=== PATIENT | female | born 1995 | race Caucasian/White ===

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

== ENCOUNTER 2017-02-25 16:25 | Emergency (ER) | payer MEDICAID ==
[~2017-02-25] VITALS: Ht 162.6 cm; Wt 77.1 kg
--- OUTSIDE RECORDS SUMMARY | 2017-02-25 16:33 | External Medical Summary Rpt | CCD ---
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 Allergies, Adverse Reactions, Alerts Type Allergy to substance Adverse Reaction to Substance Substance Reaction Severity NO KNOWN ALLERGIES Unknown Unknown Clinical Alert Notifications Alert Diabetes: no eye exam in the last 365 days Diabetes: no lipid panel in the last 365 days Diabetes: no urine protein screening in the last 365 days Medications Na ND Rx Da Fi Fi Am Da Di Ph RX Ph St me C No te ll ll ou ys ag ar # ys at rm s nt no ma ic us Or Da si cy ia de te s n re d DE 00 11 0 No XA 05 -1 ME 43 8- Lo TH 17 20 ng 64 13 er ON 4 E Ac IN ti TE ve NS OL 1M G/ 1M L SO 00 08 0 No DI 40 -2 UM 97 4- Lo 98 20 ng CH 30 13 er LO 9 RI Ac DE ti ve 0. 9% SO WEST TI ON Sa 63 08 0 No li 80 -2 ne 70 4- Lo 10 20 ng Fl 07 13 er us 5 h Ac 10 ti ML ve Sy ri ng e In 00 03 0 No bee 08 -1 li 82 7- Lo n 22 20 ng Gl 06 13 er ar 0 gi Ac ne ti ve 10 0 Un it s/ Ml Vital Signs 03-08-2013 13:38 Name Value Interpretat Reference Comment ion Range Body 98.9 [degF] Temperature BP 64 mm[Hg] Diastolic BP Systolic 124 mm[Hg] Heart 111 /min Rate/Pulse O2% 98 % Respiratory 18 /min Rate 12-12-2012 02:50 Name Value Interpretat Reference Comment ion Range Body 98.5 [degF] Temperature BP 50 mm[Hg] Diastolic BP Systolic 101 mm[Hg] Heart 74 /min Rate/Pulse O2% 99 % Respiratory 20 /min Rate 12-12-2012 02:49 Name Value Interpretat Reference Comment ion Range Body 98.5 [degF] Temperature 12-12-2012 02:05 Name Value Interpretat Reference Comment ion Range BP 50 mm[Hg] Diastolic BP Systolic 101 mm[Hg] Heart 74 /min Rate/Pulse O2% 99 % Respiratory 20 /min Rate 07-06-2012 00:27 Name Value Interpretat Reference Comment ion Range BP 76 mm[Hg] Diastolic BP Systolic 134 mm[Hg] Heart 73 /min Rate/Pulse O2% 98 % Respiratory 20 /min Rate 07-05-2012 22:11 Name Value Interpretat Reference Comment ion Range BP 81 mm[Hg] Diastolic BP Systolic 153 mm[Hg] Heart 98 /min Rate/Pulse O2% 96 % Respiratory 20 /min Rate Results Labs Lab Lab Date Result Refere Interp Status Commen Order Detail nces retati t Range on CHLAMYDIA AND GONORRHEA TESTING (07-18-2015 13:00) Chlamyd NEGATIV complet ia 016 E ed trachom 13:00 atis rRNA [Presen ce] in Unspeci fied specime n by Probe & target amplifi cation method Neisser NEGATIV complet ia 016 E ed gonorrh 13:00 oeae rRNA [Presen ce] in Unspeci fied specime n by Probe & target amplifi cation method CHLAMYDIA AND GONORRHEA TESTING (07-18-2015 13:00) COLLECT M. F. 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 ETHNICI WHITE, complet TY 016 NON-HIS ed 13:00 PANIC KIT complet EXPIRAT 016 6 ed ION 13:00 DATE SYMPTOM NO complet S 016 ed 13:00 REASON REVISIT complet FOR 016 /ANNUAL ed REQUEST 13:00 FAMILY PLANNIN G VISIT SPECIME URINE complet N 016 ed SOURCE 13:00 PREGNAN NO complet T 016 ed 13:00 CHART 400-53- complet NUMBER 016 [id number] ed 13:00 Chlamyd Pending complet ia 016 ed trachom 13:00 atis rRNA [Presen ce] in Unspeci fied specime n by Probe & target amplifi cation method Neisser Pending complet ia 016 ed gonorrh 13:00 oeae rRNA [Presen ce] in Unspeci fied specime n by Probe & target amplifi cation method COMPREHENSIVE METABOLIC PANEL (12-12-2012 01:05) Glucose 191 74-106 complet 013 mg/dL ed Bld-mCn 01:05 c BUN 2 11 7-18 complet Bld-mCn 013 mg/dL ed c 01:05 Creat 2 0.7 0.6-1.0 complet SerPl-m 013 mg/dL ed Cnc 01:05 ESTIMAT 158 50-200 complet ED 013 ML/MIN ed CREATIN 01:05 INE CLEARAN CE Sodium 141 136-145 complet SerPl-s 013 mmoL/L ed Cnc 01:05 Potassi 2 3.3 3.5-5.1 complet um 013 mmoL/L ed SerPl-s 01:05 Cnc Chlorid 104 98-107 complet e 013 mmoL/L ed SerPl-s 01:05 Cnc CO2 25 21.0-32 complet SerPl-s 013 mmoL/L .0 ed Cnc 01:05 Calcium 12-12-2 8.3 8.5-10. complet 013 mg/dL 1 ed SerPl-m 01:05 Cnc Prot 12-12-2 7.3 6.4-8.2 complet SerPl-m 013 gm/dL ed Cnc 01:05 Albumin 12-12-2 3.9 3.4-5.0 complet 013 gm/dL ed SerPl-m 01:05 Cnc Globuli 12-12-2 3.4 1.3-3.2 complet n 013 gm/dL ed Ser-mCn 01:05 c Albumin 12-12-2 1.1 UNK 1.1-1.8 complet /Glob 013 ed SerPl-m 01:05 Rto Bilirub 12-12-2 0.2 0.2-1.0 complet 013 mg/dL ed SerPl-m 01:05 Cnc AST 24-2 24 U/L 15-37 complet SerPl-c 013 ed Cnc 01:05 ALT 24-2 44 U/L 30-65 complet SerPl-c 013 ed Cnc 01:05 ALP 24-2 119 U/L 50-136 complet SerPl-c 013 ed Cnc 01:05 Amylase SerPl-cCnc (12-12-2012 01:05) Amylase 0824-2 30 U/L 25-115 complet 013 ed SerPl-c 01:05 Cnc LIPASE (12-12-2012 01:05) LIPASE 24-2 76 U/L 73-393 complet 013 ed 01:05 CBC with AUTO DIFF (12-12-2012 01:05) WBC # 08-24-2 10.4 4.5-13. complet Bld 013 K/MM3 5 ed Auto 01:05 RBC # 0824-2 4.84 4.2-5.4 complet Bld 013 M/mm3 ed Auto 01:05 Hgb 24-2 13.9 12.2-16 complet Bld-mCn 013 g/dL .2 ed c 01:05 Hct Fr 24-2 40.6 % 37.0-47 complet Bld 013 .0 ed 01:05 MCV RBC 08-24-2 83.9 fl 82.2-97 complet 013 .8 ed 01:05 MCH RBC -24-2 28.8 pg 27-31.2 complet Qn 013 ed Auto 01:05 MEAN 24-2 34.3 31.8-35 complet CORPUSC 013 g/dl .4 ed ULAR 01:05 HGB CONC RDW RBC -24-2 13.2 % 11.5-17 complet Auto 013 .5 ed 01:05 Platele 08-24-2 327 142-424 complet t Bld 013 K/mm3 ed Ql 01:05 Manual MEAN 08-24-2 7.3 fl 7.4-10. complet PLATELE 013 4 ed T 01:05 VOLUME Granulo -24-2 59.4 % 37.0-80 complet cytes 013 .0 ed Fr Bld 01:05 Auto LYMPH % 08-24-2 33.2 % 10-50 complet 013 ed 01:05 Monocyt 08-24-2 4.6 % complet es Fr 013 ed Bld 01:05 Auto Eosinop 08-24-2 1.6 % 0.1-12. complet hil Fr 013 0 ed Bld 01:05 Auto Basophi 08-24-2 1.1 % 0.1-2.0 complet ls Fr 013 ed Bld 01:05 Auto Granulo 08-24-2 6.2 1.8-7.8 complet cytes # 013 K/mm3 ed Bld 01:05 Auto Lymphoc 08-24-2 3.5 0.7-4.5 complet ytes Fr 013 K/mm3 ed Bld 01:05 Auto Monocyt 08-24-2 0.5 0.1-1.0 complet es # 013 K/mm3 ed Bld 01:05 Auto Eosinop 08-24-2 0.2 0.0-0.4 complet hil # 013 K/mm3 ed Bld 01:05 Auto Basophi 08-24-2 0.1 0-0.2 complet ls # 013 K/MM3 ed Bld 01:05 Auto B-HCG Ur Ql (12-12-2012 01:05) B-HCG 08-24-2 NEGATIV NEG complet Ur Ql 013 E ed 01:05 URINALYSIS/COMPLETE (12-12-2012 01:05) URINE 08-24-2 YELLOW YELLOW complet COLOR 013 ed 01:05 URINE 08-24-2 CLEAR CLEAR complet APPEARA 013 ed NCE 01:05 URINE 08-24-2 NEGATIV NEG complet GLUCOSE 013 E ed - 01:05 DIPSTIC K URINE 08-24-2 NEGATIV NEG complet BILIRUB 013 E ed IN - 01:05 DIPSTIC K URINE 08-24-2 NEGATIV NEG complet KETONE 013 E mg/dL ed 01:05 URINE 08-24-2 1.020 1.005-1 complet SPECIFI 013 UNK .030 ed C 01:05 GRAVITY URINE 08-24-2 TRACE-I NEG complet BLOOD 013 NTACT ed 01:05 URINE 08-24-2 6.0 UNK 5.0-8.5 complet PH 013 ed 01:05 URINE 08-24-2 NEGATIV NEG complet PROTEIN 013 E mg/dL ed - 01:05 DIPSTIC K URINE 08-24-2 0.2 NEG complet UROBILI 013 E.U./dL ed NOGEN - 01:05 DIPSTIC K URINE 24-2 NEGATIV NEG complet NITRATE 013 E ed - 01:05 DIPSTIC K URINE 24-2 1+ NEG complet LEUK 013 ed ESTERAS 01:05 E URINE 24-2 OCC 0 complet RBC 013 rbc/hpf ed 01:05 URINE 24-2 3-5 O complet WBC 013 wbc/hpf ed 01:05 URINE 24-2 10-20 0-5 complet SQUAMOU 013 #/hpf ed S CELLS 01:05 COMPREHENSIVE METABOLIC PANEL (07-05-2012 21:45) Glucose 07-05- 452 74-106 complet 013 mg/dL ed Bld-mCn 21:45 c BUN 18 7-18 complet Bld-mCn 013 mg/dL ed c 21:45 Creat 1.1 0.6-1.0 complet SerPl-m 013 mg/dL ed Cnc 21:45 ESTIMAT 113 50-200 complet ED 013 ML/MIN ed CREATIN 21:45 INE CLEARAN CE Sodium 139 136-145 complet SerPl-s 013 mmoL/L ed Cnc 21:45 Potassi 3.9 3.5-5.1 complet um 013 mmoL/L ed SerPl-s 21:45 Cnc Chlorid 101 98-107 complet e 013 mmoL/L ed SerPl-s 21:45 Cnc CO2 27 21.0-32 complet SerPl-s 013 mmoL/L .0 ed Cnc 21:45 Calcium 07-05- 9.1 8.5-10. complet 013 mg/dL 1 ed SerPl-m 21:45 Cnc Prot 07-05-2 7.6 6.4-8.2 complet SerPl-m 013 gm/dL ed Cnc 21:45 Albumin 07-05- 3.6 3.4-5.0 complet 013 gm/dL ed SerPl-m 21:45 Cnc Globuli 07-05- 4.0 1.3-3.2 complet n 013 gm/dL ed Ser-mCn 21:45 c Albumin 0.9 UNK 1.1-1.8 complet /Glob 013 ed SerPl-m 21:45 Rto Bilirub 07-05-2 0.1 0.2-1.0 complet 013 mg/dL ed SerPl-m 21:45 Cnc AST 07-05-2 12 U/L 15-37 complet SerPl-c 013 ed Cnc 21:45 ALT 07-05-2 34 U/L 30-65 complet SerPl-c 013 ed Cnc 21:45 ALP 07-05-2 124 U/L 50-136 complet SerPl-c 013 ed Cnc 21:45 Acetamin SerPl-mCnc (07-05-2012 21:45) Acetami 07-05-2 0 ug/mL 10-30 complet n 013 ed SerPl-m 21:45 Cnc Ethanol Bld-mCnc (07-05-2012 21:45) Ethanol 07-05-2 0 mg/dL 0-99 complet 013 ed Bld-mCn 21:45 c Salicylates SerPl-mCnc (07-05-2012 21:45) Salicyl 07-05-2 2.2 2.8-20. complet ates 013 mg/dL 0 ed SerPl-m 21:45 Cnc CBC with AUTO DIFF (07-05-2012 21:45) WBC # 17-2 10.6 4.5-13. complet Bld 013 K/MM3 5 ed Auto 21:45 RBC # 17-2 4.60 4.2-5.4 complet Bld 013 M/mm3 ed Auto 21:45 Hgb 07-05-2 12.6 12.2-16 complet Bld-mCn 013 g/dL .2 ed c 21:45 Hct Fr 07-05-2 38.2 % 37.0-47 complet Bld 013 .0 ed 21:45 MCV RBC 07-05-2 83.0 fl 82.2-97 complet 013 .8 ed 21:45 MCH RBC 07-05-2 27.3 pg 27-31.2 complet Qn 013 ed Auto 21:45 MEAN 07-05-2 32.9 31.8-35 complet CORPUSC 013 g/dl .4 ed ULAR 21:45 HGB CONC RDW RBC 17-2 12.6 % 11.5-17 complet Auto 013 .5 ed 21:45 Platele 07-05-2 373 142-424 complet t Bld 013 K/mm3 ed Ql 21:45 Manual MEAN 03-17-2 7.4 fl 7.4-10. complet PLATELE 013 4 ed T 21:45 VOLUME Granulo 03-17-2 64.5 % 37.0-80 complet cytes 013 .0 ed Fr Bld 21:45 Auto LYMPH % 03-17-2 28.7 % 10-50 complet 013 ed 21:45 Monocyt 03-17-2 3.6 % complet es Fr 013 ed Bld 21:45 Auto Eosinop 03-17-2 2.1 % 0.1-12. complet hil Fr 013 0 ed Bld 21:45 Auto Basophi 03-17-2 1.1 % 0.1-2.0 complet ls Fr 013 ed Bld 21:45 Auto Granulo 03-17-2 6.9 1.8-7.8 complet cytes # 013 K/mm3 ed Bld 21:45 Auto Lymphoc 03-17-2 3.1 0.7-4.5 complet ytes Fr 013 K/mm3 ed Bld 21:45 Auto Monocyt 03-17-2 0.4 0.1-1.0 complet es # 013 K/mm3 ed Bld 21:45 Auto Eosinop 03-17-2 0.2 0.0-0.4 complet hil # 013 K/mm3 ed Bld 21:45 Auto Basophi 03-17-2 0.1 0-0.2 complet ls # 013 K/MM3 ed Bld 21:45 Auto B-HCG Ur Ql (07-05-2012 21:21) B-HCG 03-17-2 NEGATIV NEG complet Ur Ql 013 E ed 21:21 URINALYSIS/COMPLETE (07-05-2012 21:21) URINE 03-17-2 YELLOW YELLOW complet COLOR 013 ed 21:21 URINE 03-17-2 CLEAR CLEAR complet APPEARA 013 ed NCE 21:21 URINE 03-17-2 3+ NEG complet GLUCOSE 013 ed - 21:21 DIPSTIC K URINE 03-17-2 NEGATIV NEG complet BILIRUB 013 E ed IN - 21:21 DIPSTIC K URINE 03-17-2 TRACE NEG complet KETONE 013 mg/dL ed 21:21 URINE 03-17-2 1.010 1.005-1 complet SPECIFI 013 UNK .030 ed C 21:21 GRAVITY URINE -17-2 NEGATIV NEG complet BLOOD 013 E ed 21:21 URINE 07-05-2 5.5 UNK 5.0-8.5 complet PH 013 ed 21:21 URINE 07-05-2 NEGATIV NEG complet PROTEIN 013 E mg/dL ed - 21:21 DIPSTIC K URINE 07-05-2 0.2 NEG complet UROBILI 013 E.U./dL ed NOGEN - 21:21 DIPSTIC K URINE 07-05-2 NEGATIV NEG complet NITRATE 013 E ed - 21:21 DIPSTIC K URINE 07-05-2 NEGATIV NEG complet LEUK 013 E ed ESTERAS 21:21 E URINE 07-05-2 10-20 0-5 complet SQUAMOU 013 #/hpf ed S CELLS 21:21 CHLAMYDIA AND GONORRHEA TESTING (06-02-2012 09:30) Chlamyd NEGATIV complet ia 013 E ed trachom 09:30 atis rRNA [Presen ce] in Unspeci fied specime n by Probe & target amplifi cation method Neisser NEGATIV complet ia 013 E ed gonorrh 09:30 oeae rRNA [Presen ce] in Unspeci fied specime n by Probe & target amplifi cation method CHLAMYDIA AND GONORRHEA TESTING (06-02-2012 09:30) COLLECT NA complet OR 013 ed 09:30 ETHNICI WHITE, complet TY 013 NON-HIS ed 09:30 PANIC KIT 12-19-12 complet EXPIRAT 013 ed ION 09:30 DATE SYMPTOM NO complet S 013 ed 09:30 REASON VOLUNTE complet FOR 013 ER/MEDI ed REQUEST 09:30 DOMINGUEZ PROBLEM SPECIME URINE complet N 013 ed SOURCE 09:30 PREGNAN NO complet T 013 ed 09:30 CHART NA complet NUMBER 013 ed 09:30 Chlamyd Pending complet ia 013 ed trachom 09:30 atis rRNA [Presen ce] in Unspeci fied specime n by Probe & target amplifi cation method Neisser Pending complet ia 013 ed gonorrh 09:30 oeae rRNA [Presen ce] in Unspeci fied specime n by Probe & target amplifi cation method CHLAMYDIA AND GONORRHEA TESTING (03-24-2012 14:00) Chlamyd NEGATIV complet ia 012 E ed trachom 14:00 atis rRNA [Presen ce] in Unspeci fied specime n by Probe & target amplifi cation method Neisser NEGATIV complet ia 012 E ed gonorrh 14:00 oeae rRNA [Presen ce] in Unspeci fied specime n by Probe & target amplifi cation method CHLAMYDIA AND GONORRHEA TESTING (03-24-2012 14:00) COLLECT NA complet OR 012 ed 14:00 ETHNICI WHITE, complet TY 012 NON-HIS ed 14:00 PANIC KIT 08-18-12 complet EXPIRAT 012 ed ION 14:00 DATE SYMPTOM NO complet S 012 ed 14:00 REASON INITIAL complet FOR 012 FAMILY ed REQUEST 14:00 PLANNIN G VISIT SPECIME URINE complet N 012 ed SOURCE 14:00 PREGNAN NO complet T 012 ed 14:00 CHART NA complet NUMBER 012 ed 14:00 Chlamyd Pending complet ia 012 ed trachom 14:00 atis rRNA [Presen ce] in Unspeci fied specime n by Probe & target amplifi cation method Neisser Pending complet ia 012 ed gonorrh 14:00 oeae rRNA [Presen ce] in Unspeci fied specime n by Probe & target amplifi cation method Encounters Encounter Start End Date Code Location Performer Type Date Emergency MARIA ESTHER Amezcua MD (ER) 3 13:26 3 13:39 [facility] Emergency MARIA ESTHER Roy MD (ER) 3 00:55 3 02:52 [facility] Emergency MARIA ESTHER Roy MD (ER) 3 21:30 3 00:28 [facility]
--- OUTSIDE RECORDS SUMMARY | 2017-02-25 16:33 | External Medical Summary Rpt | CCD ---
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
--- OUTSIDE RECORDS SUMMARY | 2017-02-25 16:34 | External Medical Summary Rpt | CCD ---
Author Author , RONNIE TRUJILLO Address Unknown Phone [email or web address] Immunization Name Date Rout CVX Reac Dose Comm Prov Is Faci e tion ent ider Refu lity Give sed n HPV4 02-1 62 999 Hist H205 No H205 0-20 oric (Gar 10 al dasi Info l) rmat ion - Sour ce Unsp ecif ied HPV4 12-0 62 999 Hist H205 No H205 8-20 oric (Gar 09 al dasi Info l) rmat ion - Sour ce Unsp ecif ied Tdap 07-2 115 999 Hist H205 No H205 , 2-20 oric Adso 09 al rbed Info rmat ion - Sour ce Unsp ecif ied HPV4 07-2 62 999 Hist H205 No H205 2-20 oric (Gar 09 al dasi Info l) rmat ion - Sour ce Unsp ecif ied Vari 04-0 21 999 Hist H205 No H205 cell 9-20 oric a 02 al Info rmat ion - Sour ce Unsp ecif ied MMR 03-0 3 999 Hist H205 No H205 1-20 oric 02 al Info rmat ion - Sour ce Unsp ecif ied Adarsh 03-0 10 999 Hist H205 No H205 o-IP 1-20 oric V 02 al Info rmat ion - Sour ce Unsp ecif ied Adarsh 03-2 2 999 Hist H205 No H205 o-OP 8-20 oric V 00 al Info rmat ion - Sour ce Unsp ecif ied Hib, 03-2 17 999 Hist H205 No H205 UF 8-20 oric 00 al Info rmat ion - Sour ce Unsp ecif ied DTaP 11-1 107 999 Hist H149 No H149 , UF 5-19 oric 99 al Info rmat ion - Sour ce Unsp ecif ied MMR 11-1 3 999 Hist H149 No H149 5-19 oric 99 al Info rmat ion - Sour ce Unsp ecif ied
--- OUTSIDE RECORDS SUMMARY | 2017-02-25 16:34 | External Medical Summary Rpt | CCD ---
Author Author , RONNIE TRUJILLO Address Unknown Phone [email or web address] Immunization Name Date Rout CVX Reac Dose [...]
--- OUTSIDE RECORDS SUMMARY | 2017-02-25 16:34 | External Medical Summary Rpt | CCD ---
Author Author [employer] Organization [employer] Address Unknown Phone Unavailable Purpose Continuity of Care Document - through 2016
--- OUTSIDE RECORDS SUMMARY | 2017-02-25 16:35 | External Medical Summary Rpt ---
Author Author RONNIE Garcia, [employer] Organization [employer] Address Unknown Phone Unavailable Results CHLAMYDIA AND GONORRHEA TESTING Observa Value Referen Units Interpr Notes Date tion ce etation Range COLLECT M. F. 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 tion in tion in tion in tion in 1:00 PM source source source source data data data data ETHNICI WHITE, No No No No Jul 17 TY NON-HIS informa informa informa informa 2016 PANIC tion in tion in tion in tion in 1:00 PM source source source source data data data data KIT No No No No Jul 17 EXPIRAT 6 informa informa informa informa 2016 ION tion in tion in tion in tion in 1:00 PM DATE source source source source data data data data SYMPTOM NO No No No No Jul 17 S informa informa informa informa 2016 tion in tion in tion in tion in 1:00 PM source source source source data data data data REASON REVISIT No No No No Jul 17 FOR /ANNUAL informa informa informa informa 2016 REQUEST FAMILY tion in tion in tion in tion in 1:00 PM source source source source PLANNIN data data data data G VISIT SPECIME URINE No No No No Jul 17 N informa informa informa informa 2016 SOURCE tion in tion in tion in tion in 1:00 PM source source source source data data data data PREGNAN NO No No No No Jul 17 T informa informa informa informa 2016 tion in tion in tion in tion in 1:00 PM source source source source data data data data CHART 400-53- No No No No Jul 17 NUMBER [id number] informa informa informa informa 2016 tion in tion in tion in tion in 1:00 PM source source source source data data data data Chlamyd NEGATIV No No No NEGATIV Jul 17 ia E informa informa informa E 2016 trachom tion in tion in tion in RESULT= 1:00 PM atis source source source WITHIN rRNA data data data NORMAL [Presen ce] in LIMITSP Unspeci OSITIVE fied specime RESULT= n by Probe & ABNORMA target LEQUIVO DOMINGUEZ amplifi RESULT= cation method INDETER MINATEU NSATISF ACTORY RESULT= INVALID Neisser NEGATIV No No No NEGATIV Jul 17 ia E informa informa informa E 2016 gonorrh tion in tion in tion in RESULT= 1:00 PM oeae source source source WITHIN rRNA data data data NORMAL [Presen ce] in LIMITSP Unspeci OSITIVE fied specime RESULT= n by Probe & ABNORMA target LEQUIVO DOMINGUEZ amplifi RESULT= cation method INDETER MINATEU NSATISF ACTORY RESULT= INVALID THE APTIMA COMBO 2 ASSAY IS NOT INTENDE D FOR THE EVALUAT ION OF SUSPECT EDSEXUA L ABUSE OR FOR OTHER MEDICO- LEGAL INDICAT IONS. FOR THOSE PATIENT S FORWHOM A FALSE POSITIV E RESULT MAY HAVE ADVERSE PSYCHO- SOCIAL IMPACT, [facility].\.br \This report contain s patient informa tion that must be protect ed in accorda nce with the Health Insuran ce Portabi lity and Account ability Act. CHLAMYDIA AND GONORRHEA TESTING Observa Value Referen Units Interpr Notes Date tion ce etation Range COLLECT M. F. 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 tion in tion in tion in tion in 1:00 PM source source source source data data data data ETHNICI WHITE, No No No No Jul 17 TY NON-HIS informa informa informa informa 2016 PANIC tion in tion in tion in tion in 1:00 PM source source source source data data data data KIT No No No No Jul 17 EXPIRAT 6 informa informa informa informa 2016 ION tion in tion in tion in tion in 1:00 PM DATE source source source source data data data data SYMPTOM NO No No No No Jul 17 S informa informa informa informa 2016 tion in tion in tion in tion in 1:00 PM source source source source data data data data REASON REVISIT No No No No Jul 17 FOR /ANNUAL informa informa informa informa 2016 REQUEST FAMILY tion in tion in tion in tion in 1:00 PM source source source source PLANNIN data data data data G VISIT SPECIME URINE No No No No Jul 17 N informa informa informa informa 2016 SOURCE tion in tion in tion in tion in 1:00 PM source source source source data data data data PREGNAN NO No No No No Jul 17 T informa informa informa informa 2016 tion in tion in tion in tion in 1:00 PM source source source source data data data data CHART 400-53- No No No No Jul 17 NUMBER [id number] informa informa informa informa 2016 tion in tion in tion in tion in 1:00 PM source source source source data data data data Chlamyd Pending No No No No Jul 17 ia informa informa informa informa 2016 trachom tion in tion in tion in tion in 1:00 PM atis source source source source rRNA data data data data [Presen ce] in Unspeci fied specime n by Probe & target amplifi cation method Neisser Pending No No No \.br\Th Jul 17 ia informa informa informa is 2016 gonorrh tion in tion in tion in report 1:00 PM oeae source source source contain rRNA data data data s [Presen patient ce] in Unspeci informa fied tion specime that n by must be Probe & target protect ed in amplifi accorda cation nce method with the Health Insuran ce Portabi lity and Account ability Act. CHLAMYDIA AND GONORRHEA TESTING Observa Value Referen Units Interpr Notes Date tion ce etation Range COLLECT NA No No No No Jun 02 OR informa informa informa informa 2013 tion in tion in tion in tion in 9:30 AM source source source source data data data data ETHNICI WHITE, No No No No Jun 02 TY NON-HIS informa informa informa informa 2013 PANIC tion in tion in tion in tion in 9:30 AM source source source source data data data data KIT 8-31-13 No No No No Jun 02 EXPIRAT informa informa informa informa 2013 ION tion in tion in tion in tion in 9:30 AM DATE source source source source data data data data SYMPTOM NO No No No No Jun 02 S informa informa informa informa 2013 tion in tion in tion in tion in 9:30 AM source source source source data data data data REASON VOLUNTE No No No No Jun 02 FOR ER/MEDI informa informa informa informa 2013 REQUEST DOMINGUEZ tion in tion in tion in tion in 9:30 AM PROBLEM source source source source data data data data SPECIME URINE No No No No Jun 02 N informa informa informa informa 2013 SOURCE tion in tion in tion in tion in 9:30 AM source source source source data data data data PREGNAN NO No No No No Jun 02 T informa informa informa informa 2013 tion in tion in tion in tion in 9:30 AM source source source source data data data data CHART NA No No No No Jun 02 NUMBER informa informa informa informa 2013 tion in tion in tion in tion in 9:30 AM source source source source data data data data Chlamyd NEGATIV No No No NEGATIV Jun 02 ia E informa informa informa E 2013 trachom tion in tion in tion in RESULT= 9:30 AM atis source source source WITHIN rRNA data data data NORMAL [Presen ce] in LIMITSP Unspeci OSITIVE fied specime RESULT= n by Probe & ABNORMA target LEQUIVO DOMINGUEZ amplifi RESULT= cation method INDETER MINATEU NSATISF ACTORY RESULT= INVALID Neisser NEGATIV No No No NEGATIV Jun 02 ia E informa informa informa E 2013 gonorrh tion in tion in tion in RESULT= 9:30 AM oeae source source source WITHIN rRNA data data data NORMAL [Presen ce] in LIMITSP Unspeci OSITIVE fied specime RESULT= n by Probe & ABNORMA target LEQUIVO DOMINGUEZ amplifi RESULT= cation method INDETER MINATEU NSATISF ACTORY RESULT= INVALID THE APTIMA COMBO 2 ASSAY IS NOT INTENDE D FOR THE EVALUAT ION OF SUSPECT EDSEXUA L ABUSE OR FOR OTHER MEDICO- LEGAL INDICAT IONS. FOR THOSE PATIENT S FORWHOM A FALSE POSITIV E RESULT MAY HAVE ADVERSE PSYCHO- SOCIAL IMPACT, THE [facility] MMENDS RETESTI NG.\.br \This report contain s patient informa tion that must be protect ed in accorda nce with the Health Insuran ce Portabi lity and Account ability Act. CHLAMYDIA AND GONORRHEA TESTING Observa Value Referen Units Interpr Notes Date tion ce etation Range COLLECT NA No No No No Jun 02 OR informa informa informa informa 2013 tion in tion in tion in tion in 9:30 AM source source source source data data data data ETHNICI WHITE, No No No No Jun 02 TY NON-HIS informa informa informa informa 2013 PANIC tion in tion in tion in tion in 9:30 AM source source source source data data data data KIT 8-31-13 No No No No Jun 02 EXPIRAT informa informa informa informa 2013 ION tion in tion in tion in tion in 9:30 AM DATE source source source source data data data data SYMPTOM NO No No No No Jun 02 S informa informa informa informa 2013 tion in tion in tion in tion in 9:30 AM source source source source data data data data REASON VOLUNTE No No No No Jun 02 FOR ER/MEDI informa informa informa informa 2013 REQUEST DOMINGUEZ tion in tion in tion in tion in 9:30 AM PROBLEM source source source source data data data data SPECIME URINE No No No No Jun 02 N informa informa informa informa 2013 SOURCE tion in tion in tion in tion in 9:30 AM source source source source data data data data PREGNAN NO No No No No Jun 02 T informa informa informa informa 2013 tion in tion in tion in tion in 9:30 AM source source source source data data data data CHART NA No No No No Jun 02 NUMBER informa informa informa informa 2013 tion in tion in tion in tion in 9:30 AM source source source source data data data data Chlamyd Pending No No No No Jun 02 ia informa informa informa informa 2013 trachom tion in tion in tion in tion in 9:30 AM atis source source source source rRNA data data data data [Presen ce] in Unspeci fied specime n by Probe & target amplifi cation method Neisser Pending No No No \.br\Jun 02 ia informa informa informa is 2013 gonorrh tion in tion in tion in report 9:30 AM oeae source source source contain rRNA data data data s [Presen patient ce] in Unspeci informa fied tion specime that n by must be Probe & target protect ed in amplifi accorda cation nce method with the Health Insuran ce Portabi lity and Account ability Act. CHLAMYDIA AND GONORRHEA TESTING Observa Value Referen Units Interpr Notes Date tion ce etation Range COLLECT NA No No No No Mar 4 OR informa informa informa informa 2012 tion in tion in tion in tion in 2:00 PM source source source source data data data data ETHNICI WHITE, No No No No Dec TY NON-HIS informa informa informa informa 2012 PANIC tion in tion in tion in tion in 2:00 PM source source source source data data data data KIT 4-30-13 No No No No Dec 4 EXPIRAT informa informa informa informa 2012 ION tion in tion in tion in tion in 2:00 PM DATE source source source source data data data data SYMPTOM NO No No No No Dec 4 S informa informa informa informa 2012 tion in tion in tion in tion in 2:00 PM source source source source data data data data REASON INITIAL No No No No Mar 24 FOR FAMILY informa informa informa informa 2012 REQUEST tion in tion in tion in tion in 2:00 PM PLANNIN source source source source G VISIT data data data data SPECIME URINE No No No No Dec 4 N informa informa informa informa 2012 SOURCE tion in tion in tion in tion in 2:00 PM source source source source data data data data PREGNAN NO No No No No Dec T informa informa informa informa 2012 tion in tion in tion in tion in 2:00 PM source source source source data data data data CHART NA No No No No Dec 4 NUMBER informa informa informa informa 2012 tion in tion in tion in tion in 2:00 PM source source source source data data data data Chlamyd NEGATIV No No No NEGATIV Mar 4 ia E informa informa informa E 2012 trachom tion in tion in tion in RESULT= 2:00 PM atis source source source WITHIN rRNA data data data NORMAL [Presen ce] in LIMITSP Unspeci OSITIVE fied specime RESULT= n by Probe & ABNORMA target LEQUIVO DOMINGUEZ amplifi RESULT= cation method INDETER MINATEU NSATISF ACTORY RESULT= INVALID Neisser NEGATIV No No No NEGATIV Dec 4 ia E informa informa informa E 2012 gonorrh tion in tion in tion in RESULT= 2:00 PM oeae source source source WITHIN rRNA data data data NORMAL [Presen ce] in LIMITSP Unspeci OSITIVE fied specime RESULT= n by Probe & ABNORMA target LEQUIVO DOMINGUEZ amplifi RESULT= cation method INDETER MINATEU NSATISF ACTORY RESULT= INVALID THE APTIMA COMBO 2 ASSAY IS NOT INTENDE D FOR THE EVALUAT ION OF SUSPECT EDSEXUA L ABUSE OR FOR OTHER MEDICO- LEGAL INDICAT IONS. FOR THOSE PATIENT S FORWHOM A FALSE POSITIV E RESULT MAY HAVE ADVERSE PSYCHO- SOCIAL IMPACT, [facility] NG.\.br \This report contain s patient informa tion that must be protect ed in accorda nce with the Health Insuran ce Portabi lity and Account ability Act. CHLAMYDIA AND GONORRHEA TESTING Observa Value Referen Units Interpr Notes Date tion ce etation Range COLLECT NA No No No No Mar 24 OR informa informa informa informa 2012 tion in tion in tion in tion in 2:00 PM source source source source data data data data ETHNICI WHITE, No No No No Mar 24 TY NON-HIS informa informa informa informa 2012 PANIC tion in tion in tion in tion in 2:00 PM source source source source data data data data KIT 4-30-13 No No No No Mar 24 EXPIRAT informa informa informa informa 2012 ION tion in tion in tion in tion in 2:00 PM DATE source source source source data data data data SYMPTOM NO No No No No Mar 24 S informa informa informa informa 2012 tion in tion in tion in tion in 2:00 PM source source source source data data data data REASON INITIAL No No No No Mar 4 FOR FAMILY informa informa informa informa 2012 REQUEST tion in tion in tion in tion in 2:00 PM PLANNIN source source source source G VISIT data data data data SPECIME URINE No No No No Mar 4 N informa informa informa informa 2012 SOURCE tion in tion in tion in tion in 2:00 PM source source source source data data data data PREGNAN NO No No No No Mar 24 T informa informa informa informa 2012 tion in tion in tion in tion in 2:00 PM source source source source data data data data CHART NA No No No No Mar 24 NUMBER informa informa informa informa 2012 tion in tion in tion in tion in 2:00 PM source source source source data data data data Chlamyd Pending No No No No Mar 24 ia informa informa informa informa 2012 trachom tion in tion in tion in tion in 2:00 PM atis source source source source rRNA data data data data [Presen ce] in Unspeci fied specime n by Probe & target amplifi cation method Neisser Pending No No No \.br\Mar 24 ia informa informa informa is 2012 gonorrh tion in tion in tion in report 2:00 PM oeae source source source contain rRNA data data data s [Presen patient ce] in Unspeci informa fied tion specime that n by must be Probe & target protect ed in amplifi accorda cation nce method with the Health Insuran ce Portabi lity and Account ability Act.
--- OUTSIDE RECORDS SUMMARY | 2017-02-25 16:35 | External Medical Summary Rpt ---
Author Author RONNIE Garcia, [employer] Organization [employer] Address Unknown Phone Unavailable Results CHLAMYDIA AND GONORRHEA TESTING Observa Value Referen Units Interpr Notes Date tion ce etation Range COLLECT M. F. 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 CHLAMYDIA AND GONORRHEA TESTING Observa Value Referen Units Interpr Notes Date tion ce etation Range COLLECT M. F. 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
[2017-02-25 16:51] LABS: UTC STREP SCREEN NOT DETECTED (NOTDETECTED)
--- NOTE | 2017-02-25 16:51 | Urgent Treatment Center Report ---
History of Present Issue Date/Time Seen by Provider 02/25/17 1650 Visit Reason Pt arrived:Walked Presenting Problem:BODY ACHES, SORE THROAT AND FVER FOR 2 DAYS Location if Accident: Onset of symptoms date/time:/ or onset unknown for:MEDICAL HX UNKNOWN Have you (or family members/close friends) recently traveled outside the [place]? N If Yes, where/when: Have you had exposure to infectious disease within the past month? TB? Other? Specify: c/o of sore throat, body aches, cough. Started w/ sore throat late Friday. Woke up yesterday morning feeling worse. Throughout the day, aches and cough started as well as rhinorrhea and nasal congestion. Tried some sleep aid last night to help her sleep but it didn't. Denies fever. No known sick contacts. + tobacco use. Source patient Exam Limitations no limitations ALLERGIES Coded Allergies: No Known Allergies (02/08/16) Home Medications Reported Medications Insulin Lispro, Recombinant (Humalog 100 UNITS/ML 10ML) 0 UNITS SC ACHS Insulin Glargine (Lantus Insulin Vial) 47 UNITS SC QHS History Medical History General CAD? No Angina: No LA: No Hypertension? No Hyperlipidemia? Yes CHF? No DVT? No PE? No COPD? No Asthma? No Anemia? No GERD? No Gastric ulcers? No GI Bleed? No Hernia? No Thyroid Problems? No Hypothyroidism? No CVA? No Seizures? No Diabetes? Yes Insulin Dependent: Yes Insulin Pump: No Home FSBS? No Renal Insuffiency? No UTI? Yes Stones? No BPH? No GB Disease: No Nephritic Syndrome? No Asplenia? No Hepatitis? No Sickle Cell Disease? No Arthritis? No Migraines? No Cataracts? No Glaucoma? No MRSA? No HIV? No TB? No Anxiety? Yes Depression? Yes Cancer? No Immunization HX DT/Tetanus 1-4 YRS Flu REFUSES Pneumonia REFUSES Surgical Hx Previous Surgery?Y TONSILS WISDOM TEETH Family History Family HX Diabetes Yes CAD Yes Hypertension Yes Hyperlipidemia Yes Cancer Yes TB No Social History Smoking Hx Smoker: Current Every Day Smoker Tobacco: Yes Type Cigarettes Packs/day < 1 Pack Alcohol Alcohol: Yes Review of Systems All Other Systems Reviewed and Negative Constitutional see HPI, denies chills Eyes denies drainage ENT see HPI, other (sneezing). denies: ear pain, ear discharge, throat swelling. Respiratory see HPI, shortness of breath (reported but describes congstn), denies wheezing Cardiovascular denies chest pain, denies palpitations Gastrointestinal denies no symptoms reported Musculoskeletal denies joint pain Skin denies rash Psychiatric/Neurological headache (intermittently, pressure) Physical Exam Vital Signs Vital Signs Date Time Temp Pulse Resp B/P Pulse O2 O2 Flow FiO2 Ox Delivery Rate 02/25 1635 98.1 94 18 123/69 97 General Appearance normal appearance, no apparent distress Eye Exam - bilateral eye normal exam Ear, Nose, Throat albert EAC and TMs unremarkable, moderate nasal congestion w/ clear rhinorrhea, clear PND w/ cobblestoning Neck non-tender, supple Respiratory Status Yes: trachea midline, chest symmetrical. No: respiratory distress, pain on inspiration, pain on expiration, productive cough, non productive cough. Lung Sounds anterior: lungs clear. posterior: lungs clear. bilateral: lungs clear. Cardiovascular regular rate/rhythm, no peripheral edema, no murmur Neurologic alert, oriented x 3 Skin normal color, warm/dry Lymphatic no adenopathy Medical Decision Making LABS/Meds/Orders Pt receiving controlled substance in ED? No Results/Orders Laboratory Tests 02/25/17 1637: Influenza Type A Ag NOT DETECTED, Influenza Type B Ag NOT DETECTED, Group A Strep Screen NOT DETECTED Orders Procedure Date/time Status [facility] [[email or web address] STREP SCREEN 02/25 163 Complete [place] FLU A,B 02/25 163 Complete Departure Departure Time of Disposition 1657 Disposition DC Home or Self Care(routine) Clinical Impression Primary Impression: Upper respiratory virus Condition STABLE Referrals Damon Koch APRN (Family) IMMEDIATELY for new or worsening symptoms OR no noticeable improvement over the next 48-72 hours. 911 for difficulty breathing or swallowing. Patient Instructions DI for Viral Upper Respiratory Infection -- Adult Additional Instructions * No sign of bacterial infection. Likely viral. Virus can take 7-14 days to run their course * Monitor Temp. Tylenol every 4 hours as needed no more then 5 times a day or 4000mg in 24 hours and/or ibuprofen every 6 hours as needed no more then 3200mg in 24 hours (as long as your primary care doctor has told you that it is ok to take both) for fever/aches/pain. ER if fever no less than 101 despite tylenol and ibuprofen * Encourage fluids, water, gatorade, powerade, pedialyte if infant/toddler/child * warm salt water gargles * warm fluids * sore throat lozenges * sleep elevated * humidifier/vaporizer * flonase 2 sprays each nostril daily but may take 2-3 days to notice improvement with it. * Bromfed may cause drowsiness. Know how it effects you (or your child) before driving, caring for small children, or sending your child to school. No other antihistamines/allergy medications while taking bromfed. * * Your throat swab was sent for culture. Those results are typically sent to your primary care. Be sure to follow up in 2-3 days if no improvement so they can review those results and treat if necessary. If you don't have primary care, I recommend you get one but in the mean time, you will have to return to a walk in clinic. * Monitor blood sugar. Typically higher when sick. Discharge Counseling Counseled pt/family regarding diagnosis, test results, medications/RX, home care, follow up needs Prescriptions Current Visit Scripts D-METHORPHAN HB/P-EPD HCL/BPM (Bromfed Dm Cough Syrup) 10 ML PO QIDP PRN cough #240 ML at 1700
[2017-02-25] MEDS ORDERED: BROMFED DM COU118 ML PO (16:59)
[2017-02-25 17:06] VITALS: BP 123/69
== END 2017-02-25 17:06 | disposition home or self-care (01) ==
LOC: UTC 16:25
PROVIDERS: Nurse Practitioner Family
DX: J06.9 Acute upper respiratory infection, unspecified (principal); E11.9 Type 2 diabetes mellitus without complications; Z79.4 Long term (current) use of insulin; F41.8 Other specified anxiety disorders; F17.210 Nicotine dependence, cigarettes, uncomplicated

== ENCOUNTER → 2017-03-18 | Outpatient (CLI) | payer MEDICAID ==
[~2017-03-18] MED LIST changes: +BROMFED DM COU118 ML PO
[2017-03-21 03:36] LABS: Neisseria gonorrhoeae, NAA Negative (Negative)
== END ==
LOC: LAB 14:57
PROVIDERS: Nurse Practitioner Family
DX: N89.8 Other specified noninflammatory disorders of vagina (principal)